=== PATIENT | female | born 2000 | race Two or more races ===

== ENCOUNTER 2022-06-17 21:54 | Emergency (ER) | payer SELFPAY ==
[~2022-06-17] VITALS: Ht 157.5 cm; Wt 59.0 kg
[2022-06-17 22:11] VITALS: BP 130/82
== END 2022-06-18 03:00 | disposition left against medical advice (07) ==
LOC: ER 21:55
DX: R21 Rash and other nonspecific skin eruption (principal); Z53.21 Procedure and treatment not carried out due to patient leaving prior to being seen by health care provider